=== PATIENT | female | born 1935 | race Caucasian/White ===

== ENCOUNTER → 2019-03-06 | Day surgery (SDC) | payer MEDICARE ==
[2019-03-05 13:36] VITALS: BMI 28.8
[~2019-03-06] MED LIST: Fentanyl 100 MCG/2 ML VIAL ONE; HYDROcodone/Acetaminophen 5/325 mg Tablet ONE; Lidocaine 2% Jelly 5 ML TUBE ONE; Lidocaine 2% PF 5 ML VIAL ONE; Non-Formulary Medication 1 EACH PO PRN; Ondansetron HCl/PF 4 MG/2 ML Vial IVP PRN; Ondansetron ODT 4 MG TAB ONE; Promethazine HCl 25 MG/ML VIAL IM/IV PRN; Promethazine HCl 25 MG/ML VIAL ONE
[2019-03-06 13:39] LABS: #Eosinphils 0.1 thou/uL (0.0-0.7); #Lymphocytes 1.5 thou/uL (1.20-3.40); #Monocytes 0.4 thou/uL (0.11-0.59); %Basophils 0.2 % (0.0-1.0); %Eosinophils 2.1 % (0.0-10.0); %Lymphocytes 37.4 % (21.0-51.0); %Monocytes 9.3 % (0.0-10.0); Mean Corpuscular Hemoglobin 28.7 pg (27.0-31.0); Mean Corpuscular Volume 89.8 fL (78.0-98.0); Mean Platelet Volume 8.5 fL (7.4-10.4); Platelet Count 184 thou/uL (130-400); RBC Distribution Width 12.5 % (11.5-14.5); Red Blood Cell (RBC) Count 4.17 mill/uL (4.20-5.40); White Blood Cell (WBC) Count 3.9 thou/uL (4.8-10.8)
[2019-03-06 14:17] LABS: Anion Gap 13 mmol/L (10-20); BUN (Urea Nitrogen) 15 mg/dL (9.8-20.1); Calc. Creatinine Clearance 85 mL/min (70-130); Calcium 10.4 mg/dL (7.8-10.44); Carbon Dioxide 26 mmol/L (23-31); Chloride 106 mmol/L (98-107); Estimated GFR-MDRD 81; Glucose 93 mg/dL (83-110); Potassium 4.1 mmol/L (3.5-5.1); Sodium 141 mmol/L (136-145)
--- NOTE | 2019-03-07 06:53 | OP ---
DATE OF PROCEDURE: 03/06/2019 PREOPERATIVE DIAGNOSES: Right parotid mass, right facial nerve paralysis, right brow ptosis with vision compromise. PROCEDURE PERFORMED: Right superficial parotidectomy with right face-lift and mid forehead brow lift. PROCEDURE: After consent was obtained, the patient identified and brought to the OR and placed on table supine position. General endotracheal anesthesia was obtained. The patient was positioned for surgery. The patient was prepped and draped and the lines of intended incisions and excision was made in the face and forehead area. On the forehead, there was an elliptical incision made with a maximum diameter of 3/4 of an inch in the middle and the preauricular and cervical incision sites were delineated. We then used a 15 blade to incise the skin in the cervical area and extended in the preauricular area. The incision was then made down to the SMAS level and flaps were elevated anteriorly at the level of this mass. We then dissected along the anterior border of the sternocleidomastoid and meticulously addressed and dissected the parotid away from the fascia. Ultimately, the facial nerve root was identified and respected in case there ever was any recovery of the tumor. We dissected the nerve branches out and removed the tumor which was found to be cystic from the tail of the parotid. This was sent for permanent histologic evaluation. Hemostasis was obtained. We then turned our attention to tightening this mass and connecting that to the preauricular cartilage to tighten the skin. Redundant skin was then excised with relaxing incisions created and secured with Monocryl for the deep tissues and 6-0 Prolene for the skin. Dog ears were addressed at this time both inferior and laterally; inferiorly and superiorly. A sterile dressing was applied. We then turned our attention to the forehead area where the elliptical incision lines were used and a 15 blade was used to incise the skin. We then with sharp dissection, removed a portion of the skin and in the mid forehead area that ended in 2 lines of expression. This was dissected sharply and specimen was discarded. The bipolar was used to obtain hemostasis and the skin was closed in layers with 5-0 Monocryl to reapproximate the dermis and to connect that to the upper scalp area and the skin was closed with interrupted mattress sutures, then with #5 Prolene, followed by a running suture with 6-0 Prolene. Sterile dressing was applied. Steri-Strips were also applied. The patient was awakened, taken to recovery room in a stable condition prior to discharge home. Job ID: [id number]
--- NOTE | 2019-03-11 10:26 | EKG ---
Test Reason : PREOP Blood Pressure : / mmHG Vent. Rate : 070 BPM Atrial Rate : 070 BPM P-R Int : 182 ms QRS Dur : 144 ms QT Int : 436 ms P-R-T Axes : 089 -43 087 degrees QTc Int : 470 ms Normal sinus rhythm Left axis deviation Left bundle branch block Abnormal ECG No previous ECGs available Confirmed by YKRA MENJIVAR MD ([id number]) on 03/11/2019 10:26:03 AM Referred By: MADIHA Confirmed By:KYRA MENJIVAR MD
== END ==
LOC: SDC 10:38
PROVIDERS: ATTEND Specialist
PROC: 0CT80ZZ Resection of Right Parotid Gland, Open Approach (ICD-10-PCS; principal; 2019-03-06)
PROC: 0W020ZZ Alteration of Face, Open Approach (ICD-10-PCS; 2019-03-06)
DX: C07 Malignant neoplasm of parotid gland (principal); H57.811 Brow ptosis, right; G51.0 Bell's palsy; I10 Essential (primary) hypertension; Z79.82 Long term (current) use of aspirin; Z79.899 Other long term (current) drug therapy
CPT/HCPCS: 80048; 85025; 88307; 88341; 88342; 93005; 93010; J2001; J2550; J3010; Q0162